=== PATIENT | female | born 1935 | race Caucasian/White ===

== ENCOUNTER → 2024-07-03 | Outpatient (REF) | payer MEDICARE, BC ==
[~2024-07-03] MED LIST: ALLOPURINOL300 M1 PO; CETIRIZINE HCL10 MG PO; DIFLUCAN200 M1 PO; DOCUSATE SODIUM1 TA2 PO; DOXYCYCLINE MO100 M3 PO; GLIMEPIRIDE2 M1 PO; MACROBID 1100 MG/CAP PO; NYSTATIN 100MU/M1 ML PO; VITAMIN C500 M6 PO; VITAMIN D325 MC2 PO
[2024-07-03 16:52] LABS: URINE APPEARANCE CLOUDY (CLEAR); URINE BILIRUBIN NEGATIVE (NEGATIVE); URINE BLOOD TRACE-INTACT (NEGATIVE); URINE COLOR YELLOW (YELLOW); URINE GLUCOSE 3+ (NEGATIVE); URINE KETONE TRACE (NEGATIVE); URINE LEUKOCYTE ESTERASE 1+ (NEGATIVE); URINE NITRATE NEGATIVE (NEGATIVE); URINE PROTEIN(semi-quant) 2+ (NEGATIVE); URINE WBC >50 /hpf (0-3)
[2024-07-03 16:53] LABS: URINE MUCUS PRESENT (NOT PRESENT)
== END ==
LOC: LAB 16:26
PROVIDERS: Family Medicine
DX: R35.0 Frequency of micturition (principal)